=== PATIENT | male | born 1965 | race Asian ===

== ENCOUNTER 2023-03-11 16:02 | Emergency (ER) | payer MEDICAID ==
[~2023-03-11] VITALS: Ht 177.8 cm; Wt 43.1 kg
[2023-03-11 16:19] VITALS: BP_SYST 121
--- NOTE | 2023-03-11 16:19 | NUR ---
Pt to room 04 report given to ZECHARIAH Ryan.
--- NOTE | 2023-03-11 16:36 | NUR ---
58 yo/m [facility] for catheter replacement reports the homecare nurse felt resistance and was unable to replace it. denies any pain, fevers, chills, n/v/d. pt was given oxycodone and gabapentin 0630. at bedside. pmh: stage 4 throat cancer allergies: denies
--- NOTE | 2023-03-11 16:37 | NUR ---
XI PEDERSEN AWARE OF PT TACHYCARDIA
--- NOTE | 2023-03-11 17:06 | NUR ---
# 16 FR Martinez catheter with use of sterile technique. Immediate return of 30 cc YELLOW, RED urine noted. Bedside drainage bag placed below level of bladder. Urine sample collected and sent to lab. Pt tolerated procedure WELL. Patient arrived with martinez in place, changed due to standard of practice prior to admission. YES Patient unable to toilet self.
[2023-03-11 17:17] LABS: BILIRUBIN,URINE NEGATIVE (NEGATIVE); BLOOD, URINE 3+ (NEGATIVE); CLARITY/URINE SL CLOUDY (CLEAR); GLUCOSE,URINE NEGATIVE (NEGATIVE); KETONES,URINE TRACE (NEGATIVE); LEUKOCYTE ESTERASE ,URINE 3+ (NEGATIVE); NITRITE, URINE POSITIVE (NEGATIVE); PH,URINE 6.5 (5.0-8.0); PROTEIN URINE 3+ (NEGATIVE)
[2023-03-11 17:30] LABS: COLOR,URINE AMBER (YELLOW)
[2023-03-11 17:32] LABS: BACTERIA,URINE MANY /HPF (None Seen); MUCUS,URINE None Seen /LPF (None Seen); RBC,URINE >100 /HPF (0-3); WBC,URINE >100 /HPF (0-3)
[2023-03-11] MEDS ORDERED: NACL 0.9% 1,000 ML IV ONE (18:00)
[2023-03-11] MEDS ORDERED: CIPR500T5 PO (18:08)
--- NOTE | 2023-03-11 18:11 | NUR ---
PER XI PEDERSEN PT OK FOR DC AFTER IVF FINISH EVEN IF TACHYCARDIC 120S.
--- NOTE | 2023-03-11 19:12 | NUR ---
pt discharged, awaiting tx
--- NOTE | 2023-03-11 19:39 | NUR ---
PT REPORT TO ZECHARIAH JOHNSTON.
--- NOTE | 2023-03-11 19:49 | NUR ---
Private Transport [facility] at bedside.
[2023-03-11 19:50] VITALS: BP_SYST 138
== END 2023-03-11 19:50 ==
LOC: SED 16:02
DX: T83.098A Other mechanical complication of other urinary catheter, initial encounter (principal); N39.0 Urinary tract infection, site not specified; Z88.6 Allergy status to analgesic agent; Z85.21 Personal history of malignant neoplasm of larynx; Z79.899 Other long term (current) drug therapy
CPT/HCPCS: 99284; 96360; 81000; 87086; 51702; J7030